=== PATIENT | male | born 1980 | race Caucasian/White ===

== ENCOUNTER 2022-07-29 09:09 | Outpatient (CLI) | payer BC, SELFPAY | END 2022-07-29 09:10 | disposition home or self-care (01) | PROVIDERS: Visit Provider Family Medicine | DX: M54.16 Radiculopathy, lumbar region (principal) | CPT/HCPCS: 64483; J1100; Q9966 ==

== ENCOUNTER 2022-09-02 09:44 | Outpatient (CLI) | payer BC, SELFPAY | END 2022-09-02 09:45 | disposition home or self-care (01) | LOC: INJ CL 09:46 | PROVIDERS: Visit Provider Family Medicine | DX: M54.16 Radiculopathy, lumbar region (principal); M51.36 Other intervertebral disc degeneration, lumbar region | CPT/HCPCS: 64483; 82962; J0702; Q9966 ==